=== PATIENT | female | born 1955 | race Caucasian/White ===

== ENCOUNTER 2017-09-17 16:40 | Emergency (ER) | payer OTHER ==
[~2017-09-17] VITALS: Ht 157.5 cm; Wt 100.2 kg
[2017-09-17 16:54] VITALS: Ht 157.5 cm; Wt 100.2 kg
[2017-09-17 19:13] VITALS: BP 117/65
== END 2017-09-17 19:13 | disposition home or self-care (01) ==
LOC: ED 16:40
DX: S20.211A Contusion of right front wall of thorax, initial encounter (principal); S91.331A Puncture wound without foreign body, right foot, initial encounter; I10 Essential (primary) hypertension; Z88.5 Allergy status to narcotic agent; Z88.8 Allergy status to other drugs, medicaments and biological substances; W13.8XXA Fall from, out of or through other building or structure, initial encounter; Y93.89 Activity, other specified; Y92.89 Other specified places as the place of occurrence of the external cause; Y99.8 Other external cause status
CPT/HCPCS: 90715

== ENCOUNTER 2017-09-19 21:57 | Emergency (ER) | payer OTHER ==
[2017-09-20 00:37] VITALS: BP 128/81
== END 2017-09-20 00:37 | disposition home or self-care (01) ==
LOC: ED 21:57
DX: R60.0 Localized edema (principal); L97.519 Non-pressure chronic ulcer of other part of right foot with unspecified severity; I10 Essential (primary) hypertension; Z88.6 Allergy status to analgesic agent; Z88.5 Allergy status to narcotic agent

== ENCOUNTER 2017-10-01 15:27 | Emergency (ER) | payer OTHER ==
[~2017-10-01] VITALS: Ht 157.5 cm; Wt 100.2 kg
[2017-10-01 15:40] VITALS: BP 123/72; Ht 157.5 cm; Wt 100.2 kg
== END 2017-10-01 17:00 | disposition home or self-care (01) ==
LOC: ED 15:27
DX: R60.0 Localized edema (principal); I10 Essential (primary) hypertension; Z88.5 Allergy status to narcotic agent; Z88.6 Allergy status to analgesic agent

== ENCOUNTER 2017-12-10 22:49 | Emergency (ER) | payer OTHER ==
[~2017-12-10] VITALS: Ht 157.5 cm; Wt 100.4 kg
[2017-12-11 00:05] VITALS: BP 122/67
== END 2017-12-11 00:05 | disposition home or self-care (01) ==
LOC: ED 22:49
DX: R60.0 Localized edema (principal); I10 Essential (primary) hypertension; Z88.5 Allergy status to narcotic agent; Z88.6 Allergy status to analgesic agent

== ENCOUNTER 2017-12-16 22:46 | Emergency (ER) | payer OTHER ==
[~2017-12-16] VITALS: Ht 157.5 cm; Wt 100.2 kg
[2017-12-16 23:10] VITALS: Ht 157.5 cm; Wt 100.2 kg
[2017-12-17 00:22] VITALS: BP 130/74
== END 2017-12-17 00:23 | disposition home or self-care (01) ==
LOC: ED 22:46
DX: G89.29 Other chronic pain (principal); M79.605 Pain in left leg; M79.604 Pain in right leg; I10 Essential (primary) hypertension; Z88.6 Allergy status to analgesic agent

== ENCOUNTER 2017-12-19 14:46 | Emergency (ER) | payer OTHER ==
[~2017-12-19] VITALS: Ht 157.5 cm; Wt 100.7 kg
[2017-12-19 15:18] VITALS: Ht 157.5 cm; Wt 100.7 kg
[2017-12-19 16:15] VITALS: BP 106/62
== END 2017-12-19 16:15 | disposition home or self-care (01) ==
LOC: ED 14:46
DX: R63.1 Polydipsia (principal); Z00.00 Encounter for general adult medical examination without abnormal findings; I10 Essential (primary) hypertension; Z88.6 Allergy status to analgesic agent

== ENCOUNTER 2017-12-22 13:41 | Emergency (ER) | payer OTHER ==
[~2017-12-22] VITALS: Ht 162.6 cm; Wt 99.8 kg
[2017-12-22 13:48] VITALS: BP 123/72; Ht 162.6 cm; Wt 99.8 kg
== END 2017-12-22 15:51 | disposition home or self-care (01) ==
LOC: ED 13:41
DX: L84 Corns and callosities (principal); I10 Essential (primary) hypertension; E03.9 Hypothyroidism, unspecified; E66.01 Morbid (severe) obesity due to excess calories; Z68.37 Body mass index [BMI] 37.0-37.9, adult; Z88.6 Allergy status to analgesic agent

== ENCOUNTER 2017-12-31 | Inpatient (IN) | payer OTHER ==
[~2017-12-31] VITALS: Ht 157.5 cm; Wt 98.0 kg
[2017-12-31 00:13] VITALS: Ht 157.5 cm; Wt 98.0 kg
[2017-12-31 00:42] LABS: microscopic required? NO
[2017-12-31 01:04] LABS: PLATELET COUNT 262 x10^3mcL (130-400); RED CELL DISTRIBUTION WIDTH 14.4 % (11.5-14.5)
[2017-12-31 01:05] LABS: CALCIUM 8.7 mg/dL (8.5-10.1); CARBON DIOXIDE 27.7 mmol/L (21-32); CREATININE SERUM 1.1 mg/dL (0.6-1.0); POTASSIUM SERUM 3.7 mmol/L (3.5-5.1)
[2017-12-31 01:07] LABS: UA SPECIFIC GRAVITY 1.015 (1.005-1.035); urine erythrocyte NEGATIVE (NEGATIVE)
[2017-12-31 01:08] LABS: BASOPHIL % 4.4 % (0-2)
[2017-12-31 01:20] LABS: ALBUMIN 3.8 g/dL (3.4-5.0); BILIRUBIN TOTAL 0.71 mg/dL (0.20-1.00); FREE T4 0.38 ng/dL (0.76-1.46)
[2017-12-31 01:21] LABS: TOTAL PROTEIN, SERUM 8.3 g/dL (6.4-8.2)
[2017-12-31 01:22] LABS: AMPHETAMINE QUAL UR NONE DETECTED (See below)
[2017-12-31 03:35] VITALS: BP 127/72
[2017-12-31 04:30] LABS: MAGNESIUM 2.4 mg/dL (1.8-2.4); PHOSPHOROUS 3.8 mg/dL (2.5-4.9)
[2017-12-31 04:33] LABS: CHOLESTEROL/HDL RATIO 5.7
[2017-12-31 05:50] VITALS: BP 104/50
[2017-12-31 08:47] VITALS: BP 99/60
[2017-12-31 12:13] LABS: BASOPHIL % 0.8 % (0-2); PLATELET COUNT 191 x10^3mcL (130-400)
[2017-12-31 12:16] LABS: RED CELL DISTRIBUTION WIDTH 15.2 % (11.5-14.5)
[2017-12-31 12:29] LABS: CALCIUM 8.1 mg/dL (8.5-10.1); CARBON DIOXIDE 28.3 mmol/L (21-32); CHLORIDE SERUM 108 mmol/L (98-107); CREATININE SERUM 0.8 mg/dL (0.6-1.0); GFR1 > 60 mL/min; GLUCOSE SERUM 70 mg/dL (74-106); POTASSIUM SERUM 4.2 mmol/L (3.5-5.1); SODIUM SERUM 144 mmol/L (136-145)
[2017-12-31 17:06] VITALS: BP 102/46
[2017-12-31 21:03] VITALS: BP 103/48
[2018-01-01 05:33] VITALS: BP 118/64
[2018-01-01 06:24] LABS: BASOPHIL % 1.1 % (0-2); PLATELET COUNT 190 x10^3mcL (130-400)
[2018-01-01 06:44] LABS: RED CELL DISTRIBUTION WIDTH 15.3 % (11.5-14.5)
[2018-01-01 06:52] LABS: CALCIUM 8.6 mg/dL (8.5-10.1); CARBON DIOXIDE 27.3 mmol/L (21-32); POTASSIUM SERUM 4.6 mmol/L (3.5-5.1)
[2018-01-01 08:49] VITALS: BP 123/56
[2018-01-01 17:51] VITALS: BP 127/50
[2018-01-01 20:51] VITALS: BP 103/52
[2018-01-02 06:25] LABS: CALCIUM 8.7 mg/dL (8.5-10.1); CHLORIDE SERUM 108 mmol/L (98-107); CREATININE SERUM 0.9 mg/dL (0.6-1.0); GFR1 > 60 mL/min; GLUCOSE SERUM 86 mg/dL (74-106); MAGNESIUM 2.4 mg/dL (1.8-2.4); PHOSPHOROUS 3.5 mg/dL (2.5-4.9); POTASSIUM SERUM 4.7 mmol/L (3.5-5.1); SODIUM SERUM 144 mmol/L (136-145)
[2018-01-02 06:30] LABS: BASOPHIL % 0.9 % (0-2); PLATELET COUNT 205 x10^3mcL (130-400)
[2018-01-02 06:33] VITALS: BP 114/57
[2018-01-02 06:45] LABS: RED CELL DISTRIBUTION WIDTH 15.6 % (11.5-14.5)
[2018-01-02 09:03] VITALS: BP 107/43
[2018-01-02 16:59] VITALS: BP 102/63
[2018-01-02 20:22] VITALS: BP 101/50
[2018-01-03 04:59] VITALS: BP 108/41
[2018-01-03 08:00] VITALS: BP 113/60
[2018-01-03] MEDS ORDERED: SYN75 PO (12:42)
[2018-01-03] MEDS ORDERED: CLINDAMYCIN HC300 MG PO (12:46)
== END 2018-01-03 14:00 | disposition home or self-care (01) | DRG 602 ==
LOC: ED → MU 02:44
PROVIDERS: Emergency Medicine; Internal Medicine
DX: L03.116 Cellulitis of left lower limb (principal); N17.0 Acute kidney failure with tubular necrosis; Z68.41 Body mass index [BMI] 40.0-44.9, adult; L03.115 Cellulitis of right lower limb; R73.03 Prediabetes; E03.9 Hypothyroidism, unspecified; E78.5 Hyperlipidemia, unspecified; Z59.0 Homelessness
CPT/HCPCS: 83880; 84439; 87804; J0295; J1644; J7030; Q0092

== ENCOUNTER 2018-01-12 23:08 | Emergency (ER) | payer OTHER ==
[~2018-01-12] VITALS: Ht 157.5 cm; Wt 98.6 kg
[~2018-01-12 23:08] MED LIST: CLINDAMYCIN HC300 MG PO; SYN75 PO
[2018-01-12 23:25] VITALS: Ht 157.5 cm; Wt 98.6 kg
[2018-01-12 23:46] VITALS: BP 115/71
== END 2018-01-12 23:46 | disposition home or self-care (01) ==
LOC: ED 23:08
DX: R12 Heartburn (principal); I10 Essential (primary) hypertension; Z88.5 Allergy status to narcotic agent; Z00.00 Encounter for general adult medical examination without abnormal findings; Z88.6 Allergy status to analgesic agent

== ENCOUNTER 2018-01-16 00:13 | Emergency (ER) | payer OTHER ==
[~2018-01-16] VITALS: Ht 157.5 cm; Wt 97.5 kg
[2018-01-16 00:21] VITALS: Ht 157.5 cm; Wt 97.5 kg
[2018-01-16 01:57] LABS: microscopic required? NO
[2018-01-16 01:59] LABS: PLATELET COUNT 268 x10^3mcL (130-400); RED CELL DISTRIBUTION WIDTH 13.9 % (11.5-14.5)
[2018-01-16 02:08] LABS: CALCIUM 8.8 mg/dL (8.5-10.1); CARBON DIOXIDE 30.8 mmol/L (21-32); POTASSIUM SERUM 3.9 mmol/L (3.5-5.1)
[2018-01-16 02:19] LABS: UA SPECIFIC GRAVITY >=1.030 (1.005-1.035); urine erythrocyte NEGATIVE (NEGATIVE)
[2018-01-16 02:21] LABS: ALBUMIN 3.9 g/dL (3.4-5.0); BILIRUBIN TOTAL 1.17 mg/dL (0.20-1.00); FREE T4 0.68 ng/dL (0.76-1.46)
[2018-01-16 02:24] LABS: TOTAL PROTEIN, SERUM 8.5 g/dL (6.4-8.2)
[2018-01-16 03:42] VITALS: BP 119/69
== END 2018-01-16 04:01 | disposition home or self-care (01) ==
LOC: ED 00:13
PROVIDERS: Emergency Medicine
DX: E03.9 Hypothyroidism, unspecified (principal); R60.9 Edema, unspecified; I10 Essential (primary) hypertension; Z88.5 Allergy status to narcotic agent; Z88.6 Allergy status to analgesic agent
CPT/HCPCS: 36415; 83880; 84439; Q0092

== ENCOUNTER 2018-01-17 19:57 | Emergency (ER) | payer OTHER ==
[2018-01-17 20:56] VITALS: BP 129/80
== END 2018-01-17 20:56 | disposition home or self-care (01) ==
LOC: ED 19:57
DX: E03.9 Hypothyroidism, unspecified (principal); I10 Essential (primary) hypertension; Z00.00 Encounter for general adult medical examination without abnormal findings; Z88.5 Allergy status to narcotic agent; Z88.6 Allergy status to analgesic agent

== ENCOUNTER 2018-10-14 00:13 | Emergency (ER) | payer OTHER ==
[~2018-10-14] VITALS: Ht 165.1 cm; Wt 100.7 kg
[2018-10-14 00:17] VITALS: Ht 165.1 cm; Wt 100.7 kg
[2018-10-14 03:11] VITALS: BP 124/63
== END 2018-10-14 03:11 | disposition home or self-care (01) ==
LOC: ED 00:13
DX: R22.43 Localized swelling, mass and lump, lower limb, bilateral (principal); I10 Essential (primary) hypertension; Z88.5 Allergy status to narcotic agent; Z88.6 Allergy status to analgesic agent

== ENCOUNTER 2018-10-21 02:04 | Emergency (ER) | payer OTHER ==
[~2018-10-21] VITALS: Ht 157.5 cm; Wt 98.0 kg
[2018-10-21 02:09] VITALS: Ht 157.5 cm; Wt 98.0 kg
[2018-10-21 06:48] VITALS: BP 135/92
== END 2018-10-21 06:48 | disposition home or self-care (01) ==
LOC: ED 02:04
DX: N39.0 Urinary tract infection, site not specified (principal); I10 Essential (primary) hypertension; Z88.5 Allergy status to narcotic agent; Z88.6 Allergy status to analgesic agent

== ENCOUNTER 2018-11-08 01:35 | Emergency (ER) | payer OTHER ==
[~2018-11-08] VITALS: Ht 157.5 cm; Wt 101.6 kg
[2018-11-08 01:54] VITALS: Ht 157.5 cm; Wt 101.6 kg
[2018-11-08 05:09] VITALS: BP 126/59
== END 2018-11-08 05:09 | disposition home or self-care (01) ==
LOC: ED 01:35
DX: R60.0 Localized edema (principal); R25.2 Cramp and spasm; I10 Essential (primary) hypertension; E03.9 Hypothyroidism, unspecified; Z88.6 Allergy status to analgesic agent; Z88.5 Allergy status to narcotic agent
CPT/HCPCS: Q0092

== ENCOUNTER 2019-02-22 03:06 | Emergency (ER) | payer OTHER ==
[~2019-02-22] VITALS: Ht 157.5 cm; Wt 100.0 kg
[2019-02-22 03:12] VITALS: Ht 157.5 cm; Wt 100.0 kg
[2019-02-22 05:36] VITALS: BP 119/41
== END 2019-02-22 05:36 | disposition home or self-care (01) ==
LOC: ED 03:06
DX: S60.413A Abrasion of left middle finger, initial encounter (principal); I10 Essential (primary) hypertension; Z88.6 Allergy status to analgesic agent; Z88.5 Allergy status to narcotic agent; W22.8XXA Striking against or struck by other objects, initial encounter; Y93.89 Activity, other specified; Y92.512 Supermarket, store or market as the place of occurrence of the external cause; Y99.8 Other external cause status

== ENCOUNTER 2019-05-04 23:03 | Emergency (ER) | payer OTHER ==
[~2019-05-04] VITALS: Ht 157.5 cm; Wt 98.0 kg
[2019-05-04 23:11] VITALS: Ht 157.5 cm; Wt 98.0 kg
[2019-05-05 00:24] LABS: BASOPHIL % 1.3 % (0-2); PLATELET COUNT 234 x10^3mcL (130-400); RED CELL DISTRIBUTION WIDTH 14.8 % (11.5-14.5)
[2019-05-05 00:47] LABS: UA SPECIFIC GRAVITY >=1.030 (1.005-1.035); microscopic required? YES; urine erythrocyte 1+ (NEGATIVE)
[2019-05-05 01:12] LABS: CALCIUM 9.1 mg/dL (8.5-10.1); CARBON DIOXIDE 28.1 mmol/L (21-32); CREATININE SERUM 1.1 mg/dL (0.6-1.0); POTASSIUM SERUM 4.1 mmol/L (3.5-5.1)
[2019-05-05 01:16] LABS: ALBUMIN 4.1 g/dL (3.4-5.0); BILIRUBIN TOTAL 1.3 mg/dL (0.20-1.00)
[2019-05-05 01:17] LABS: TOTAL PROTEIN, SERUM 8.6 g/dL (6.4-8.2)
[2019-05-05 01:54] VITALS: BP 141/62
== END 2019-05-05 01:58 | disposition home or self-care (01) ==
LOC: ED 23:03
PROVIDERS: Specialist
DX: N39.0 Urinary tract infection, site not specified (principal); I10 Essential (primary) hypertension; Z88.6 Allergy status to analgesic agent; Z88.5 Allergy status to narcotic agent; Z98.890 Other specified postprocedural states
CPT/HCPCS: 36415

== ENCOUNTER 2019-06-16 22:36 | Emergency (ER) | payer OTHER ==
[~2019-06-16] VITALS: Ht 157.5 cm; Wt 100.8 kg
[2019-06-17 01:08] VITALS: BP 127/71
== END 2019-06-17 01:17 | disposition home or self-care (01) ==
LOC: ED 22:36
DX: M25.562 Pain in left knee (principal); I10 Essential (primary) hypertension; Z88.5 Allergy status to narcotic agent; Z88.6 Allergy status to analgesic agent
CPT/HCPCS: Q0092

== ENCOUNTER 2019-06-24 15:09 | Emergency (ER) | payer OTHER ==
[~2019-06-24] VITALS: Ht 165.1 cm; Wt 98.0 kg
[2019-06-24 15:18] VITALS: BP 129/46; Ht 165.1 cm; Wt 98.0 kg
== END 2019-06-24 16:25 | disposition home or self-care (01) ==
LOC: ED 15:09
DX: M25.562 Pain in left knee (principal); I10 Essential (primary) hypertension; Z88.5 Allergy status to narcotic agent; Z88.6 Allergy status to analgesic agent